=== PATIENT | female | born 1940 | race Hispanic/Latino ===

== ENCOUNTER 2021-06-25 17:36 | Emergency (ER) | payer MEDICARE ==
[2021-06-25 17:46] VITALS: BP 161/98
--- NOTE | 2021-06-26 00:04 | XRay Report ---
LEFT TIBIA-FIBULA 2 VIEW(S) INDICATION / CLINICAL INFORMATION: LLE pain swelling COMPARISON: None available. FINDINGS: BONES / JOINT(S): No acute fracture or subluxation. 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 Subjective osteopenia. SOFT TISSUES: No focal lower leg soft tissue swelling. ADDITIONAL FINDINGS: None. Signer Name: Candido Stone MD Signed: 06/26/2021 12:00 AM Workstation Name: [id number]
[2021-06-26] MEDS ORDERED: HYDROcodone/ACETAMINOPHEN 5-325 MG TAB PO STA (02:26)
--- NOTE | 2021-06-26 02:35 | Emergency Department Report ---
ED Extremity Problem HPI - General Chief complaint: Extremity Problem,Nontraumatic Stated complaint: R/O DVT Time Seen by Provider: 06/26/21 02:22 Source: patient Mode of arrival: Ambulatory Limitations: No Limitations - History of Present Illness Initial comments: 81-year-old female [facility] patient presents to the emergency department complaining of a 2-week history of some occasional swelling and sharp burning pains to the foot and toes with redness of an unknown etiology. She she was advised by her [facility] physician to come to the emergency department to be evaluated for a blood clot. Complaint: extremity pain -: Gradual History of Same: No Radiation: none Quality: dull Consistency: constant Improves with: nothing Worsens with: nothing Associated Symptoms: denies: chest pain, myalgias, arthralgias - Related Data Previous Rx's Medication Instructions Recorded Last Taken Type clindamycin HCL [Clindamycin cap] 75 mg PO Q8HR #30 cap 06/26/21 Unknown Rx Allergies Allergy/AdvReac Type Severity Reaction Status Date / Time No Known Allergies Allergy Unverified 12/24/19 07:12 ED Review of Systems ROS: Stated complaint: R/O DVT Other details as noted in HPI Comment: All other systems reviewed and negative ED Past Medical Hx - Past Medical History Hx Hypertension: Yes - Surgical History Hx Breast Surgery: Yes - Social History Smoking Status: Never Smoker Substance Use Type: None - Medications Home Medications: Home Medications Medication Instructions Recorded Confirmed Last Taken Type clindamycin HCL [Clindamycin cap] 75 mg PO Q8HR #30 cap 06/26/21 Unknown Rx ED Physical Exam - General Limitations: No Limitations General appearance: alert, in no apparent distress - Head Head exam: Present: atraumatic, normocephalic - Eye Eye exam: Present: normal appearance - ENT ENT exam: Present: mucous membranes moist - Neck Neck exam: Present: normal inspection - Respiratory Respiratory exam: Present: normal lung sounds bilaterally. Absent: respiratory distress - Cardiovascular Cardiovascular Exam: Present: regular rate, normal rhythm. Absent: systolic murmur, diastolic murmur, rubs, gallop - GI/Abdominal GI/Abdominal exam: Present: soft, normal bowel sounds - Extremities Exam Extremities exam: Present: tenderness - Expanded Lower Extremity Exam Left Lower Leg exam: Present: tenderness. Absent: ecchymosis, deformity, palpable cord, Amy's sign 1 - Redness to the toes with peeling skin some swelling to the hallux region and bruising along the medial nailbed region. Tenderness is present but dorsalis pedis is intact. Skin erosion noted between the toes with some uniform swelling to the dorsum of the foot as well. 2 - Peeling to the heel with evidence of a a tinea pedis present minimal discomfort with palpation pulses 2+ to the right foot - Back Exam Back exam: Present: normal inspection - Neurological Exam Neurological exam: Present: alert, oriented X3 - Psychiatric Psychiatric exam: Present: normal affect, normal mood - Skin Skin exam: Present: warm, dry, intact, normal color. Absent: rash ED Course Vital Signs 06/25/21 06/26/21 17:45 02:41 Temperature 98 F Pulse Rate 82 Respiratory 16 14 Rate Blood Pressure 161/98 [Right] O2 Sat by Pulse 100 Oximetry ED Medical Decision Making - Lab Data Result diagrams: 06/26/21 02:40 06/26/21 02:40 - Medical Decision Making Presentation consistent with simple cellulitis. Given history, exam, work-up I have low suspicion for necrotizing fasciitis, abscess, osteomyelitis, DVT or other emergent problem as cause for this presentation. The patient is nontoxic appearing and vital signs are stable. There is a reasonably low risk for treatment failure based on history. Strict return precautions were discussed with patient with full understanding. Advised patient to follow-up promptly with primary care care doctor within the next 48 hours. Critical care attestation.: If time is entered above; I have spent that time in minutes in the direct care of this critically ill patient, excluding procedure time. ED Disposition Clinical Impression: Foot infection Disposition: HOME / SELF CARE / HOMELESS Is pt being admited?: No Does the pt Need Aspirin: No Condition: Stable Instructions: Cellulitis, Adult Additional Instructions: For sure to follow-up with the [facility] doctor for further evaluation and management of your foot infection there is no evidence of any DVT present Prescriptions: clindamycin HCL [Clindamycin cap] 75 mg PO Q8HR #30 cap Referrals: [facility] [Outside] - 3-5 Days
[2021-06-26 03:02] LABS: Basophils # (Auto) 0.1 K/mm3 (0.0-0.1); Basophils % (Auto) 0.7 % (0.0-1.8); Eosinophils # (Auto) 0.1 K/mm3 (0.0-0.4); Eosinophils % (Auto) 1.3 % (0.0-4.3); Hemoglobin 13.4 gm/dl (10.1-14.3); Lymphocytes # (Auto) 2.9 K/mm3 (1.2-5.4); Lymphocytes % (Auto) 26.2 % (13.4-35.0); Mean Corpuscular HGB Conc 31 % (30-34); Mean Corpuscular Volume 86 fl (79-97); Monocytes # (Auto) 0.7 K/mm3 (0.0-0.8); Monocytes % (Auto) 6.5 % (0.0-7.3); Platelet Count 232 K/mm3 (140-440); Red Blood Count 5.01 M/mm3 (3.65-5.03); Red Cell Distribution Width 16.8 % (13.2-15.2)
[2021-06-26 03:17] LABS: Blood Urea Nitrogen 10 mg/dL (7-17); Calcium 9.8 mg/dL (8.4-10.2); Hemolysis Index 1
[2021-06-26 03:32] LABS: BUN/Creatinine Ratio 14
--- NOTE | 2021-06-26 06:37 | Vascular Lab Report ---
DUPLEX DOPPLER LOWER EXTREMITY VEINS, LEFT INDICATION / CLINICAL INFORMATION: lower ext swelling and pain. TECHNIQUE: Duplex doppler imaging was performed through the veins of the left lower extremity using v enous compression and other maneuvers. COMPARISON: None available. FINDINGS: LEFT COMMON FEMORAL VEIN: Negative. LEFT FEMORAL VEIN: Negative. LEFT POPLITEAL VEIN: Negative. LEFT CALF VEINS: Negative. ADDITIONAL FINDINGS: None. IMPRESSION: 1. No sonographic evidence for DVT in the left lower extremity. Signer Name: Candido Stone MD Signed: 06/26/2021 6:32 AM Workstation Name: [id number]
== END 2021-06-26 06:00 | disposition home or self-care (01) ==
LOC: ED 17:36
DX: L08.89 Other specified local infections of the skin and subcutaneous tissue (principal); M79.89 Other specified soft tissue disorders; I10 Essential (primary) hypertension; Z98.890 Other specified postprocedural states; Y93.89 Activity, other specified; Y92.89 Other specified places as the place of occurrence of the external cause; Y99.8 Other external cause status
CPT/HCPCS: 36415; 80048; 85025; 99284